=== PATIENT | male | born 1970 | race Caucasian/White ===

== ENCOUNTER 2020-02-06 17:52 | Observation (INO) | payer OTHER ==
[~2020-02-06] VITALS: Ht 167.6 cm; Wt 126.1 kg
[2020-02-06] VITALS (9 sets, daily range): BP systolic 100–126; BP diastolic 54–64
--- NOTE | ~2020-02-06 | H ---
[address] [address] HISTORY AND PHYSICAL Name: RASHAWN CARDOZO ROBERT M Room: [address] Anoop Floyd#: [id number] Admission: 02/06/20 Attend Phys: [facility] Discharge: 02/07/20 Date of : 66 Report #: [id number] THIS REPORT FOR: //name// cc: [facility] ~ THIS REPORT FOR: //name// [facility]. Refer to acute Inpatient stay for details. By: [id number] Records Staff BENIGNO /FAUSTINO
[2020-02-06 20:13] LABS: BE -3.3 mmol/L (-2 to +3); PO2 94.8 mmHg (75.0-100.0); pH 7.349 (7.340-7.450)
[2020-02-06 20:56] LABS: HEMATOCRIT 29.2 % (42.0-52.0); HEMOGLOBIN 10.1 gm/dL (14.0-18.0); MCH 30.8 pg (26.0-34.0); MCHC 34.8 g/dL (28.0-37.0); MCV 88.6 fL (80.0-100.0); MPV 10.2 fl. (7.2-11.1); NUCLEATED RBCS 0 /100WBC; PLATELET COUNT* 72 thou/uL (150-400); RBC 3.29 mil/uL (4.50-6.00); RDW-CV 15.2 % (10.5-14.5); WBC 17.2 thou/uL (4.0-11.0)
[2020-02-06 21:03] LABS: URINE BILIRUBIN NEGATIVE (Negative); URINE BLOOD 3+ (Negative); URINE CLARITY CLEAR; URINE COLOR YELLOW; URINE GLUCOSE-RANDOM NEGATIVE (Negative); URINE KETONES NEGATIVE (Negative); URINE LEUKOCYTES NEGATIVE (Negative); URINE LEUKOCYTES-REFLEX NEGATIVE (Negative); URINE NITRITE NEGATIVE (Negative); URINE NITRITE-REFLEX NEGATIVE (Negative); URINE PROTEIN 2+ (Negative); URINE UROBILINOGEN 0.2 E.U./dl (0.2-1.0)
[2020-02-06 21:08] LABS: CALCIUM 7.7 mg/dL (8.5-10.1); CREATININE 7.5 mg/dL (0.6-1.3); POTASSIUM 5.3 mmol/L (3.5-5.1)
[2020-02-06 21:09] LABS: PROTIME 10.7 Seconds (9.20-11.50)
[2020-02-06 21:14] LABS: SQUAMOUS 0-3 Few /LPF (0-3)
[2020-02-06 21:15] LABS: HYALINE CASTS 0-3 Few /LPF (None Seen); URINE WBC-REFLEX 0-5 Rare /HPF (0-5)
[2020-02-06 21:16] LABS: MUCUS None Seen strn/LPF (None Seen); URINE RBC >20 Many /HPF (0-2)
[2020-02-06 21:17] LABS: AMORPHOUS URATES Moderate /LPF (None Seen); BACTERIA-REFLEX 1-9 Few /HPF (None Seen)
[2020-02-06 21:19] LABS: ALBUMIN 2.3 g/dL (3.4-5.0); DIRECT BILIRUBIN 0.2 mg/dL (<0.1-0.3); MAGNESIUM 2.4 mg/dL (1.8-2.4); TOTAL BILIRUBIN 0.4 mg/dL (<0.1-1.0); TOTAL PROTEIN 5.6 g/dL (6.4-8.2)
[2020-02-06 21:39] LABS: ABSOLUTE MONOCYTES 0.3 thou/uL (0.0-1.2); ABSOLUTE NEUTROPHILS 15.8 thou/uL (1.6-8.1)
[2020-02-06 21:40] LABS: ANISOCYTOSIS Occasional; PLATELET ESTIMATE DECREASED
[2020-02-07] VITALS (28 sets, daily range): BP systolic 91–145; BP diastolic 44–73
[2020-02-07 02:24] LABS: BE -6.2 mmol/L (-2 to +3)
[2020-02-07 02:25] LABS: PCO2 50.1 mmHg (35.0-45.0); pH 7.242 (7.340-7.450)
[2020-02-07 02:38] LABS: ABSOLUTE LYMPHOCYTES 0.3 thou/uL (0.8-5.3); ABSOLUTE MONOCYTES 0.4 thou/uL (0.0-1.2); ABSOLUTE NEUTROPHILS 13.6 thou/uL (1.6-8.1); BASOPHILS 0.2 %; HEMATOCRIT 29.3 % (42.0-52.0); MCH 30.8 pg (26.0-34.0); MCHC 34.3 g/dL (28.0-37.0); MCV 89.8 fL (80.0-100.0); MONOCYTES 2.5 %; MPV 9.8 fl. (7.2-11.1); NUCLEATED RBCS 0 /100WBC; PLATELET COUNT* 69 thou/uL (150-400); POLYS 95.3 %; RBC 3.26 mil/uL (4.50-6.00); WBC 14.2 thou/uL (4.0-11.0)
[2020-02-07 02:44] LABS: APTT 26.5 Seconds (25.0-31.3); PROTIME 10.7 Seconds (9.20-11.50)
[2020-02-07 02:58] LABS: ALBUMIN 2.1 g/dL (3.4-5.0); CALCIUM 7.3 mg/dL (8.5-10.1); DIRECT BILIRUBIN 0.2 mg/dL (<0.1-0.3); MAGNESIUM 2.4 mg/dL (1.8-2.4); PHOSPHORUS* 5.2 mg/dL (2.5-4.9); POTASSIUM 5.3 mmol/L (3.5-5.1); TOTAL BILIRUBIN 0.4 mg/dL (<0.1-1.0); TOTAL PROTEIN 5.4 g/dL (6.4-8.2); TROPONIN-I LEVEL 0.25 ng/mL (<0.06)
[2020-02-07 03:41] LABS: BE -6.1 mmol/L (-2 to +3); PO2 85.9 mmHg (75.0-100.0)
[2020-02-07 03:42] LABS: PCO2 50.3 mmHg (35.0-45.0); pH 7.247 (7.340-7.450)
[2020-02-07 05:57] LABS: BE -6.4 mmol/L (-2 to +3); PCO2 38.1 mmHg (35.0-45.0); PO2 98.9 mmHg (75.0-100.0); pH 7.319 (7.340-7.450)
[2020-02-07 09:09] LABS: ABSOLUTE LYMPHOCYTES 0.5 thou/uL (0.8-5.3); ABSOLUTE MONOCYTES 0.3 thou/uL (0.0-1.2); ABSOLUTE NEUTROPHILS 12.4 thou/uL (1.6-8.1); HEMATOCRIT 27.4 % (42.0-52.0); HEMOGLOBIN 9.4 gm/dL (14.0-18.0); LYMPHOCYTES 3.8 %; MCH 30.8 pg (26.0-34.0); MCHC 34.4 g/dL (28.0-37.0); MCV 89.6 fL (80.0-100.0); MONOCYTES 2.5 %; MPV 9.6 fl. (7.2-11.1); NUCLEATED RBCS 0 /100WBC; PLATELET COUNT* 69 thou/uL (150-400); POLYS 93.7 %; RBC 3.06 mil/uL (4.50-6.00); RDW-CV 14.7 % (10.5-14.5); WBC 13.2 thou/uL (4.0-11.0)
[2020-02-07 09:14] LABS: APTT 26.1 Seconds (25.0-31.3); PROTIME 10.6 Seconds (9.20-11.50)
[2020-02-07 09:38] LABS: CK-MB MASS 0.7 ng/mL (<0.5-3.6); DIRECT BILIRUBIN 0.2 mg/dL (<0.1-0.3); TOTAL BILIRUBIN 0.4 mg/dL (<0.1-1.0); TOTAL PROTEIN 5.4 g/dL (6.4-8.2)
[2020-02-07 10:00] LABS: ALBUMIN 2.1 g/dL (3.4-5.0); CALCIUM 7.4 mg/dL (8.5-10.1); CREATININE 8.2 mg/dL (0.6-1.3); MAGNESIUM 2.5 mg/dL (1.8-2.4); PHOSPHORUS* 5.5 mg/dL (2.5-4.9); POTASSIUM 5.6 mmol/L (3.5-5.1); TROPONIN-I LEVEL 0.22 ng/mL (<0.06)
[2020-02-07 15:11] LABS: BE -8.7 mmol/L (-2 to +3); PCO2 30.5 mmHg (35.0-45.0); PO2 104.3 mmHg (75.0-100.0); pH 7.333 (7.340-7.450)
[2020-02-07 15:19] LABS: ABSOLUTE LYMPHOCYTES 0.3 thou/uL (0.8-5.3); ABSOLUTE MONOCYTES 0.2 thou/uL (0.0-1.2); ABSOLUTE NEUTROPHILS 10.7 thou/uL (1.6-8.1); BASOPHILS 0.1 %; HEMATOCRIT 26.3 % (42.0-52.0); LYMPHOCYTES 2.9 %; MCH 30.6 pg (26.0-34.0); MCHC 34.4 g/dL (28.0-37.0); MCV 88.9 fL (80.0-100.0); MPV 10.1 fl. (7.2-11.1); NUCLEATED RBCS 0 /100WBC; PLATELET COUNT* 66 thou/uL (150-400); RBC 2.95 mil/uL (4.50-6.00); RDW-CV 15.2 % (10.5-14.5); WBC 11.3 thou/uL (4.0-11.0)
[2020-02-07 15:20] LABS: APTT 24.7 Seconds (25.0-31.3); PROTIME 10.7 Seconds (9.20-11.50)
[2020-02-07 15:36] LABS: ALBUMIN 2.1 g/dL (3.4-5.0); ALKALINE PHOSPHATASE 74 U/L (46-116); AMYLASE 51 U/L (25-115); ANION GAP 14 mmol/L (7-16); BUN 109 mg/dL (7-18); CALCIUM 7.7 mg/dL (8.5-10.1); CHLORIDE 98 mmol/L (98-107); CO2 22 mmol/L (21-32); CREATININE 8.7 mg/dL (0.6-1.3); DIRECT BILIRUBIN 0.2 mg/dL (<0.1-0.3); GLUCOSE 225 mg/dL (70-99); LIPASE 50 U/L (73-393); MAGNESIUM 2.5 mg/dL (1.8-2.4); PHOSPHORUS* 5.9 mg/dL (2.5-4.9); SGOT 234 U/L (15-37); SGPT 51 U/L (30-65); SODIUM 134 mmol/L (136-145); TOTAL BILIRUBIN 0.4 mg/dL (<0.1-1.0); TOTAL PROTEIN 5.3 g/dL (6.4-8.2); TROPONIN-I LEVEL 0.18 ng/mL (<0.06)
[2020-02-07 15:38] LABS: CK-MB MASS < 0.5 ng/mL (<0.5-3.6)
[2020-02-07 15:40] LABS: POTASSIUM 6.1 mmol/L (3.5-5.1)
[2020-02-08 02:06] LABS: GLYCOHEMOGLOBIN (HGB A1C) 8.5 % (4.8-5.6)
== END 2020-02-07 17:45 ==
LOC: M.ICU 17:52
DX: Z52.6 Liver donor (principal); Z86.74 Personal history of sudden cardiac arrest